=== PATIENT | female | born 1990 | race Caucasian/White ===

== ENCOUNTER 2016-04-24 11:33 | Emergency (ER) | payer SELFPAY ==
[~2016-04-24] VITALS: Ht 160 cm; Wt 56.7 kg
[2016-04-24] MEDS ORDERED: LORAZEPAM INJ 2 MG/ML VIAL ONE (11:42)
[2016-04-24] MEDS ORDERED: diphenhydrAMINE HCL 50 MG/ML VIAL ONE (11:43)
[2016-04-24] MEDS ORDERED: HALOPERIDOL LACTATE INJ 5 MG/ML VIAL ONE (11:43)
[2016-04-24] MEDS ORDERED: HALOPERIDOL LACTATE INJ 5 MG/ML VIAL IM ONE (12:00)
[2016-04-24] MEDS ORDERED: diphenhydrAMINE HCL 50 MG/ML VIAL IM ONE (12:00)
[2016-04-24] MEDS ORDERED: LORAZEPAM INJ 2 MG/ML VIAL IM ONE (12:00)
[2016-04-24 12:32] LABS: BASOPHILS # (AUTO) 0.5 /CMM (0.0-0.2); BASOPHILS % (AUTO) 3.4 % (0.0-2.0); DIFF TOTAL % 100 %; EOSINOPHILS % (AUTO) 0.2 % (0.0-6.0); HEMATOCRIT 44 % (33-45); HEMOGLOBIN 14.4 g/dL (11.5-14.8); LYMPHOCYTES # (AUTO) 0.9 /CMM (0.8-4.8); MEAN CORPUSCULAR HEMOGLOBIN 31 PG (26.0-33.0); MEAN CORPUSCULAR HGB CONC 32 g/dl (31.0-36.0); MEAN CORPUSCULAR VOLUME 94 fL (82-100); MONOCYTES # (AUTO) 0.7 /CMM (0.1-1.30); MONOCYTES % (AUTO) 5.3 % (2.0-12.0); NEUTROPHILS # (AUTO) 11.4 /CMM (1.8-8.9); NEUTROPHILS % (AUTO) 84.1 % (43.0-81.0); PLATELET COUNT (AUTO) 315 /CMM (150-450); RED BLOOD CELL COUNT(AUTO) 4.72 MIL/uL (4.0-5.2); WHITE BLOOD COUNT (AUTO) 13.5 K/uL (4.3-11.0)
[2016-04-24 12:40] LABS: ANION GAP 15 (5-14); CARBON DIOXIDE 25 mmol/L (21-32); CHLORIDE 105 mmol/L (98-107); CREATININE 1.1 mg/dL (0.6-1.3); GFR 60 mL/min (>60); GLUCOSE 149 mg/dL (74-106); SODIUM SERUM 142 mmol/L (136-145); UREA NITROGEN, BLOOD 15 mg/dL (7-18)
[2016-04-24 12:49] LABS: POTASSIUM 2.8 mmol/L (3.5-5.1)
[2016-04-24 12:50] LABS: ALANINE AMINOTRANSFERASE 19 U/L (12-78); ALBUMIN 4.4 g/dL (3.4-5.0); ASPARTATE AMINOTRANSFERASE 20 U/L (15-37); BILIRUBIN,DIRECT 0.2 mg/dL (0.0-0.2); BILIRUBIN,TOTAL 0.7 mg/dL (0.2-1.0); INDIRECT BILIRUBIN 0.5 mg/dL (0.0-1.1); SALICYLATE 4.2 mg/dL (2.8-20.0); TOTAL PROTEIN, SERUM 8.1 g/dL (6.4-8.2)
[2016-04-24 12:54] LABS: ACETAMINOPHEN < 10 ug/ml (10-30)
[2016-04-24 13:16] LABS: PREGNANCY TEST URINE QUAL NEGATIVE (NEGATIVE)
[2016-04-24 14:13] LABS: ADD UA MICROSCOPIC YES; KETONES,URINE 15 (NEGATIVE); LEUKOCYTE ESTERASE ,URINE Trace (NEGATIVE); PH,URINE 6.5 (5.0-8.0)
[2016-04-24 14:14] LABS: ADD URINE CULTURE NO; RBC,URINE 0-2 /HPF (0-2); WBC,URINE 0-2 /HPF (0-3)
[2016-04-24 14:15] LABS: HYALINE CASTS, URINE Few /LPF (None Seen)
[2016-04-24 15:37] LABS: PHENCYCLIDINE SCREEN,URINE NEGATIVE (NEGATIVE)
[2016-04-24 15:38] LABS: CANNABINOID, URINE POSITIVE (NEGATIVE)
[2016-04-24] MEDS ORDERED: POTASSIUM CHLORIDE 20 MEQ TAB.PRT.SR PO ONE ×3 (19:44→20:00)
[2016-04-24] MEDS ORDERED: IV NS 0.9% 1,000 ML ONE (19:44)
[2016-04-24] MEDS ORDERED: IV NS 0.9% 1,000 ML BAG IV ONE (20:00)
[2016-04-24 20:56] VITALS: BP 120/78
== END 2016-04-24 21:20 | disposition home or self-care (01) ==
LOC: ER 11:35 → EDBD 11:35 → ER 21:20
DX: E86.0 Dehydration (principal); F15.10 Other stimulant abuse, uncomplicated
CPT/HCPCS: 36415; 80048; 80076; 80305; 80329; 81001; 84703; 85025; 96360; 96372 ×3; 99284; A4606; G0480 ×2; J1200; J1630; J2060; J7030; Z7610; 81000-TC; G6039-TC